=== PATIENT | male | born 1940 | race Caucasian/White ===

== ENCOUNTER → 2020-12-21 | Outpatient (CLI) | payer OTHER, MEDICARE ==
[~2020-12-21] MED LIST: ACETAMINOPHEN325 M1 PO; ASPIRIN325 PO; CARVEDILOL12.5 MG; CITRATE OF MAG296 ML PO; COLACE100 MG PO; COUMADIN 5 MG TA5 M1 PO; LEXAPRO20 MG PO; LISINOPRIL20 MG PO; METAMUCIL WAFER1 PK1 PO; MOM PO; NORVASC10 MG PO; OMEGA-3100 MG; OMEGA-31000 M1 PO; PLAVIX 75 MG TA75 MG; PRAVACHOL40 MG PO; SIMVASTATIN40 MG; TAMSULOSIN HCL0.4 M1 PO; TUMS PO
== END ==
LOC: SJCVC 13:14 → SJCVCIMAG 13:14
PROVIDERS: ATTEND Internal Medicine Cardiovascular Disease
DX: I07.1 Rheumatic tricuspid insufficiency (principal); I27.20 Pulmonary hypertension, unspecified; I25.10 Atherosclerotic heart disease of native coronary artery without angina pectoris; I44.2 Atrioventricular block, complete; I42.8 Other cardiomyopathies; E78.2 Mixed hyperlipidemia; R60.9 Edema, unspecified; I11.0 Hypertensive heart disease with heart failure; I50.23 Acute on chronic systolic (congestive) heart failure; I47.2 Ventricular tachycardia; F17.210 Nicotine dependence, cigarettes, uncomplicated; Z95.0 Presence of cardiac pacemaker; Z98.890 Other specified postprocedural states; Z79.82 Long term (current) use of aspirin; Z79.899 Other long term (current) drug therapy; Z82.49 Family history of ischemic heart disease and other diseases of the circulatory system